=== PATIENT | male | born 1975 | race Caucasian/White ===

== ENCOUNTER 2016-08-01 15:42 | Inpatient (IN) | payer OTHER ==
--- NOTE | ~2016-08-01 | HP ---
Unit #: [id number] #: [id number] Patient: DONALD ALEJANDRO [id number] [place] [address] [id number] MR#: [id number] NAME: DONALD ALEJANDRO ROOM: P184 Age: 41 Sex: M Admission Date: 08/01/2016 : 1975 Attending Physician: Pete Martínez M.D. Admitting Physician: Pete Martínez M.D. Primary Care Physician: No Primary Care Physician HISTORY AND PHYSICAL HISTORY OF PRESENT ILLNESS Donald is a 41-year-old admitted to [facility] because of his continued drug use. He shoots heroin. He has had other admissions to this facility for the same. PAST MEDICAL HISTORY 1. Long history of illicit substance abuse to include IV heroin. 2. Hepatitis C. PAST SURGICAL HISTORY T and A. ALLERGIES Sulfa. SOCIAL HISTORY Smokes greater than one pack per day. Denies alcohol. Admits to long history of illicit substance abuse to include IV heroin. FAMILY HISTORY Medically noncontributory. REVIEW OF SYSTEMS CONSTITUTIONAL: No fever or chills. HEENT: Denies any sore throat, ear pain or runny nose. CARDIOVASCULAR: Denies chest pain, irregular heart rhythm or palpitations. CHEST: Denies shortness of breath or cough. No hemoptysis. GASTROINTESTINAL: Denies nausea, vomiting, diarrhea or chronic constipation. ENDOCRINE: Denies history of increased thirst or urination. No recent significant weight loss or gain. GENITOURINARY: Denies dysuria, frequency, or hematuria. SKIN: Denies any rashes. HEMATOLOGIC: Denies history of increased bleeding or bruising. MUSCULOSKELETAL: Denies any hot, swollen joints. No generalized muscle pain. NEUROLOGIC: Denies problems with vision or speech. No frequent, severe headaches. No numbness, tingling or weakness in any extremities. Denies loss of bladder or bowel control. CURRENT MEDICATIONS Detox protocol. Unit #: [id number] #: [id number] Patient: DONALD ALEJANDRO PHYSICAL EXAMINATION GENERAL: Alert, well nourished, and in no apparent distress. VITAL SIGNS: Blood pressure 100/56, heart rate 80, respirations 16, temperature 98.6, weight 193 pounds, and height 6 feet, 1 inch. SKIN: Warm and dry without rash or lesion. HEENT: Normocephalic. TMs not viewed. Oral and nasal passages clear. Conjunctivae clear. PERRLA. EOMs intact. NECK: Supple without lymphadenopathy or thyromegaly. HEART: Regular rate and rhythm without murmur. LUNGS: Clear. ABDOMEN: Soft, nontender. : Not done. EXTREMITIES: No evidence of cyanosis, clubbing or edema. Moves all without focal deficit. NEUROLOGICAL: Grossly within normal limits. Cranial Nerves: II: Visual snow are intact. III, IV AND : Extraocular movements are intact. Pupils are equal, round and reactive to light. V: Facial sensation is grossly normal. VII: Facial movements and expression are normal. VIII: Auditory acuity grossly intact. IX, X: Uvula is midline. Phonation is normal. XI: Patient shrugs shoulders and turns head normally. XII: Tongue protrudes in the midline. Sensory and Motor Function: Sensory and motor sensation is grossly normal. Motor: moves all extremities well. Coordination: Gait is normal. Deep Tendon Reflexes: Intact. IMPRESSION Psychiatric admission. RECOMMENDATIONS PSYCHIATRIC: Per psychiatrist. MEDICAL: I see no contraindication to participating in facility's activities. MEDICAL PROGNOSIS Good. MEDICAL CONDITION Stable. Dictated by... Mamie Barajas PRickARick-Judith. for Natalya Montano/flori TD: 08/03/2016 08:32 JOB #: [id number] Unit #: [id number] #: [id number] Patient: DONALD ALEJANDRO HISTORY AND PHYSICAL Page 1 of 1 X Mamie Barajas X HISTORY AND PHYSICAL
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
--- NOTE | ~2016-08-01 | DS ---
Unit #: [id number] #: [id number] Patient: DONALD ALEJANDRO [id number] [facility] [address] [place] [address] [id number] MR#: [id number] NAME: DONALD ALEJANDRO ROOM: P184 Age: 41 Sex: M Admission Date: 08/01/2016 : 1975 Discharge Date: 08/05/2016 Attending Physician: Pete Martínez M.D. DISCHARGE SUMMARY REASON FOR ADMISSION Donald Ogden is a 41-year-old man, who is trying to get a recovery house, but has been using heroin. This has caused him to lose his housing and he must detox prior to admission to the recovery house. He had passive suicidal ideation, but contracted for safety and was admitted for stabilization. LABORATORY DATA Please see hospital chart. HOSPITAL COURSE The patient was admitted and placed on the opioid detox protocol. Trazodone as needed for insomnia was also provided. The patient had an uneventful period of inpatient detox and participated appropriately in unit groups and activities. On the day of discharge, he continued to be free of suicidal ideation and had established a relationship with a [facility] in [place], [place]. DISCHARGE DIAGNOSES AXIS I: Opioid dependence with withdrawal, uncomplicated. AXIS II: Antisocial traits. AXIS III: Hepatitis B and hepatitis C. AXIS IV: AXIS V: DISCHARGE INSTRUCTIONS Follow up with [facility] choice in [place], [place]. DISCHARGE MEDICATIONS None. CONDITION AT DISCHARGE Fair. PROGNOSIS Fair. DIET Ad cole. ACTIVITY Ad cole. Unit #: [id number] #: [id number] Patient: DONALD ALEJANDRO Dictated by... Natalya Arrieta/shahram TD: 08/05/2016 18:00 JOB #: [id number] DISCHARGE SUMMARY Page 1 of 1 X Pete Martínez MD X DISCHARGE SUMMARY
[2016-08-02 12:31] LABS: BASOPHIL% 0.6 % (0-2.5); EOSINOPHIL# 0.2 X10e3 (0-0.7); EOSINOPHIL% 5.6 % (0.0-7.0); HEMATOCRIT 44.3 % (38.0-50.0); HEMOGLOBIN 14.6 gm/dL (13.0-16.0); LYMPHOCYTE# 1.3 X10e3 (1.0-3.5); LYMPHOCYTE% 31.3 % (17.0-45.0); MEAN CELL VOLUME 93.5 FL (83-96); MEAN CORPUSCULAR HEMOGLOBIN 30.9 PG (28-34); MEAN CORPUSCULAR HGB CONC 33.1 g/dL (30-36); MEAN PLATELET VOLUME 8.8 FL (6.5-11.5); MONOCYTE# 0.5 X10e3 (0-1.0); MONOCYTE% 11.3 % (3.0-12.0); NEUTROPHIL# 2.1 X10e3 (1.5-7.1); NEUTROPHIL% 51.2 % (40-75); PLATELET COUNT 129 X10e3 (140-420); RED BLOOD COUNT 4.74 X10e (3.90-5.60); RED CELL DISTRIBUTION WIDTH 13.9 % (11.0-15.5); WHITE BLOOD COUNT 4.1 X10e3 (4.0-10.5)
[2016-08-02 12:43] LABS: ALBUMIN SERUM 3.7 g/dL (3.5-5.0); BUN/CREATININE RATIO 16.66; CREATININE SERUM 0.9 mg/dL (0.6-1.4); GLOM FILT RATE Estimated 107.2 mL/min (>60); POTASSIUM 4.3 mmol/L (3.5-5.1); PROTEIN TOTAL SERUM 6.3 g/dL (6.0-8.3)
[2016-08-02 12:45] LABS: DIFF IND NO
[2016-08-05 12:28] LABS: AMPHETAMINE POS (NEG); BARBITURATES NEG (NEG); BENZODIAZEPINES NEG (NEG); COCAINE NEG (NEG); MARIJUANA POS (NEG); OPIATES POS (NEG); TRICYCLIC ANTIDEPRESSANTS NEG (NEG); U METHADONE NEG (NEG)
== END 2016-08-05 11:10 | disposition home or self-care (01) | DRG 897 ==
LOC: P1E 18:13
PROVIDERS: Psychiatry & Neurology Psychiatry
PROC: HZ2ZZZZ Detoxification Services for Substance Abuse Treatment (ICD-10-PCS; principal; 2016-08-01)
DX: F11.23 Opioid dependence with withdrawal (principal); B19.10 Unspecified viral hepatitis B without hepatic coma; F60.2 Antisocial personality disorder; B19.20 Unspecified viral hepatitis C without hepatic coma; F17.210 Nicotine dependence, cigarettes, uncomplicated; Z88.2 Allergy status to sulfonamides
CPT/HCPCS: 80053; 80307; 85025; 86592